=== PATIENT | male | born 1965 | race Caucasian/White ===

== ENCOUNTER → 2017-05-11 15:56 | Outpatient (CLI) | payer MEDICARE, SELFPAY ==
[2017-05-11 16:18] LABS: Basophils # 0.1 K/mm3 (0-0.2); Basophils % 0.8 % (0.1-2.0); Eosinophils # 1.7 K/mm3 (0.0-0.4); Eosinophils % 14.8 % (0.1-12.0); Hematocrit 44.2 % (42.0-52.0); Hemoglobin 13.5 g/dL (14.1-18.0); Lymphocytes # 2.3 K/mm3 (0.7-4.5); Lymphocytes % 19.9 K/mm3 (10-50); Mean Corpuscular HGB Conc 30.5 g/dL (31.8-35.4); Mean Corpuscular Hemoglobin 27.1 pg (27.0-31.2); Mean Corpuscular Volume 88.7 fl (80-94); Mean Platelet Volume 7.5 fl (7.4-10.4); Monocytes # 0.5 K/mm3 (0.1-1.0); Monocytes % 4.3 % (1.7-9.3); Neutrophils # 6.9 K/mm3 (1.8-7.8); Neutrophils % 60.3 % (37.0-80.0); Platelet Count 357 K/mm3 (142-424); Red Blood Count 4.98 M/mm3 (4.60-6.20); Red Cell Distribution Width 14.6 % (11.5-17.5); White Blood Count 11.5 K/mm3 (4.8-10.8)
[2017-05-11 16:44] LABS: Prothrombin Time 98.8 seconds (9.4-11.8)
[2017-05-11 16:45] LABS: INR 8.95 (0.9-1.1)
[2017-05-11 18:52] LABS: Anion Gap 14.3 mEq/L (5-15); Blood Urea Nitrogen 14 mg/dL (7-18); Carbon Dioxide 27 mmol/L (21.0-32.0); Chloride 107 mmol/L (98-107); Creatinine,Serum 0.58 mg/dL (0.70-1.30); Estimated Glomerular Filt Rate 147 ml/min (>60); GFR (African American) 177 ML/MIN (>60); Glucose 64 mg/dL (74-106); Potassium 4.3 mmoL/L (3.5-5.1); Sodium 144 mmol/L (136-145)
== END ==
PROVIDERS: PCP Nurse Practitioner Family; Visit Provider Nurse Practitioner Family
DX: I48.2 Chronic atrial fibrillation (principal); I50.42 Chronic combined systolic (congestive) and diastolic (congestive) heart failure
CPT/HCPCS: 36415; 80048; 85025; 85610

== ENCOUNTER 2017-05-15 15:16 | Outpatient (CLI) | payer MEDICARE, SELFPAY ==
[2017-05-15 16:26] LABS: PHA INR Fingerstick 1.2 (0.9-1.1)
== END 2017-05-15 16:30 | disposition home or self-care (01) ==
LOC: ACC 15:17
PROVIDERS: PCP Internal Medicine Adolescent Medicine; Visit Provider Internal Medicine Adolescent Medicine
DX: Z79.01 Long term (current) use of anticoagulants (principal); Z51.81 Encounter for therapeutic drug level monitoring; I48.91 Unspecified atrial fibrillation
CPT/HCPCS: 85610

== ENCOUNTER 2017-05-25 14:40 | Outpatient (CLI) | payer MEDICARE, SELFPAY ==
[2017-05-25 15:57] LABS: PHA INR Fingerstick 3.4 (0.9-1.1)
== END 2017-05-25 16:00 | disposition home or self-care (01) ==
LOC: ACC 14:42
PROVIDERS: PCP Internal Medicine Adolescent Medicine; Visit Provider Internal Medicine Adolescent Medicine
DX: Z79.01 Long term (current) use of anticoagulants (principal); Z51.81 Encounter for therapeutic drug level monitoring; I48.91 Unspecified atrial fibrillation
CPT/HCPCS: 85610; 99211; G0463

== ENCOUNTER → 2017-06-06 10:17 | Outpatient (CLI) | payer MEDICARE, SELFPAY ==
[2017-06-06 12:00] LABS: Basophils % 0.3 % (0.1-2.0); Eosinophils # 0.3 K/mm3 (0.0-0.4); Eosinophils % 2.1 % (0.1-12.0); Hematocrit 47.7 % (42.0-52.0); Hemoglobin 14.3 g/dL (14.1-18.0); Lymphocytes # 1.9 K/mm3 (0.7-4.5); Mean Corpuscular HGB Conc 30.1 g/dL (31.8-35.4); Mean Corpuscular Hemoglobin 28.1 pg (27.0-31.2); Mean Corpuscular Volume 93.4 fl (80-94); Mean Platelet Volume 7.2 fl (7.4-10.4); Monocytes # 0.5 K/mm3 (0.1-1.0); Neutrophils # 9.6 K/mm3 (1.8-7.8); Neutrophils % 78.5 % (37.0-80.0); Platelet Count 369 K/mm3 (142-424); Red Blood Count 5.11 M/mm3 (4.60-6.20); Red Cell Distribution Width 15.9 % (11.5-17.5); White Blood Count 12.3 K/mm3 (4.8-10.8)
[2017-06-06 13:25] LABS: Alanine Aminotransferase 42 U/L (12-78); Albumin Level 3.8 gm/dL (3.4-5.0); Albumin/Globulin Ratio 0.9 (1.1-1.8); Alkaline Phosphatase 132 U/L (46-116); Anion Gap 15.2 mEq/L (5-15); Aspartate Amino Transferase 19 U/L (15-37); Bilirubin,Total 0.2 mg/dL (0.2-1.0); Blood Urea Nitrogen 16 mg/dL (7-18); Carbon Dioxide 23 mmol/L (21.0-32.0); Chloride 106 mmol/L (98-107); Chol/HDL Ratio 4.5 (1-3.5); Cholesterol 185 mg/dL (140-200); Creatinine,Serum 0.88 mg/dL (0.70-1.30); Estimated Glomerular Filt Rate 91 ml/min (>60); GFR (African American) 110 ML/MIN (>60); Globulin 4.2 gm/dl (1.3-3.2); Glucose 79 mg/dL (74-106); HDL Cholesterol 41 mg/dL (27-67); LDL Cholesterol 109 mg/dL (0-130); Potassium 4.2 mmoL/L (3.5-5.1); Sodium 140 mmol/L (136-145); Triglycerides 173 mg/dL (30-200); VLDL Cholesterol 35 mg/dL (0-40)
[2017-06-06 16:15] LABS: INR 1.67 (0.9-1.1); Prothrombin Time 18.1 seconds (9.4-11.8)
== END ==
PROVIDERS: PCP Internal Medicine Adolescent Medicine; Visit Provider Internal Medicine Adolescent Medicine
DX: Z51.81 Encounter for therapeutic drug level monitoring (principal); Z79.01 Long term (current) use of anticoagulants; I48.91 Unspecified atrial fibrillation
CPT/HCPCS: 36415; 80053; 80061; 85025; 85610

== ENCOUNTER → 2017-06-20 16:16 | Outpatient (CLI) | payer MEDICARE, SELFPAY ==
[2017-06-21 15:13] LABS: PHA INR Fingerstick 2.4 (0.9-1.1)
== END | disposition home or self-care (01) ==
PROVIDERS: Family Provider Internal Medicine Adolescent Medicine; PCP Internal Medicine Adolescent Medicine; Visit Provider Internal Medicine Adolescent Medicine
DX: Z79.01 Long term (current) use of anticoagulants (principal); Z51.81 Encounter for therapeutic drug level monitoring; I48.91 Unspecified atrial fibrillation
CPT/HCPCS: 85610; 99211; G0463

== ENCOUNTER → 2017-06-29 16:07 | Outpatient (CLI) | payer MEDICARE, SELFPAY ==
[2017-06-29 16:21] LABS: PHA INR Fingerstick 2.8 (0.9-1.1)
== END | disposition home or self-care (01) ==
PROVIDERS: PCP Nurse Practitioner Family; Visit Provider Nurse Practitioner Family
DX: Z79.01 Long term (current) use of anticoagulants (principal); Z51.81 Encounter for therapeutic drug level monitoring; I48.91 Unspecified atrial fibrillation
CPT/HCPCS: 85610; 99211; G0463

== ENCOUNTER → 2019-07-25 08:13 | Outpatient (CLI) | payer MEDICARE, SELFPAY ==
--- NOTE | 2019-07-25 08:26 | US_ITS ---
PROCEDURE: US PARACENTESIS CLINICAL INDICATION: ALCOHOLIC CIRRHOSIS OF LIVER WITH ASCITES COMPARISON: No exams were available for comparison TECHNIQUE: Informed consent was obtain prior to procedure. After appropriate Time out, under aseptic conditions and local anesthesia with 1% buffered lidocaine using sonographic guidance a 6 Prydeinig Ditp-O-Gdwzgdsr catheter was inserted into the largest pocket of fluid localized in the right lower quadrant. Approximately 3200 mL of Serosanguineous fluid was drained. The patient tolerated the procedure well and left the radiology suite in stable condition. FINDINGS: Mild diffuse ascites IMPRESSION: Successful sonographic guided paracentesis without complication. Dictated by: Valentin Issa MD 07/25/2019 14:10 Electronically signed by Valentin Issa MD in [place] 07/25/2019 14:10
== END ==
PROVIDERS: PCP Nurse Practitioner Family; Visit Provider Nurse Practitioner Family
DX: K70.31 Alcoholic cirrhosis of liver with ascites (principal)
CPT/HCPCS: 49083

== ENCOUNTER → 2019-08-05 09:08 | Outpatient (CLI) | payer MEDICARE, SELFPAY ==
[2019-08-06 08:53] LABS: Covid-19 Nasal PCR Sendout Lex NOT DETECTED
--- NOTE | 2019-08-06 10:24 | PC.NURSE ---
[id number]-notified pt and of negative COVID 19 results.
== END ==
PROVIDERS: Visit Provider Radiology Diagnostic Radiology
DX: Z03.818 Encounter for observation for suspected exposure to other biological agents ruled out (principal)
CPT/HCPCS: U0003

== ENCOUNTER → 2019-08-27 10:41 | Outpatient (CLI) | payer MEDICARE, SELFPAY ==
--- NOTE | 2019-08-27 11:12 | US_ITS ---
PROCEDURE: US PARACENTESIS CLINICAL INDICATION: R18.8 Liver cancer, ascites COMPARISON: US PARACENTESIS from 07/25/2019 TECHNIQUE: Informed consent was obtain prior to procedure. After appropriate Time out, under aseptic conditions and local anesthesia with 1% buffered lidocaine using sonographic guidance a 6 [place] Mouh-N-Bjpbhdqa catheter was inserted into the largest pocket of fluid localized in the right lower quadrant. Approximately Fluid 4300 mL serosanguineous fluid was drained. The patient tolerated the procedure well and left the radiology suite in stable condition. FINDINGS: Diffuse ascites IMPRESSION: Successful sonographic guided paracentesis without complication. Dictated by: Valentin Issa MD 08/27/2019 15:30 Electronically signed by Valentin Issa MD in [facility] 08/27/2019 15:30
[2019-08-27 11:21] LABS: Ammonia 51 umol/L (9-30)
[2019-08-27 11:25] LABS: Basophils # 0.1 K/mm3 (0-0.2); Basophils % 1.1 % (0.1-2.0); Eosinophils # 0.2 K/mm3 (0.0-0.4); Eosinophils % 2.3 % (0.1-12.0); Hematocrit 33.3 % (42.0-52.0); Hemoglobin 9.7 g/dL (14.1-18.0); Lymphocytes # 1.9 K/mm3 (0.7-4.5); Lymphocytes % 20.4 % (10-50); Mean Corpuscular HGB Conc 29.1 g/dL (31.8-35.4); Mean Corpuscular Hemoglobin 28.8 pg (27.0-31.2); Mean Platelet Volume 9.5 fl (7.4-10.4); Monocytes % 10.2 % (1.7-9.3); Neutrophils # 6.1 K/mm3 (1.8-7.8); Neutrophils % 66.1 % (37.0-80.0); Platelet Count 194 K/mm3 (142-424); Red Blood Count 3.36 M/mm3 (4.60-6.20); Red Cell Distribution Width 18.4 % (11.5-17.5); White Blood Count 9.3 K/mm3 (4.8-10.8)
[2019-08-27 12:09] LABS: Alanine Aminotransferase 24 U/L (12-78); Albumin/Globulin Ratio 0.7 (1.1-1.8); Alkaline Phosphatase 117 U/L (38-126); Anion Gap 12.4 mEq/L (5-15); Aspartate Amino Transferase 47 U/L (17-59); Bilirubin,Total 1.4 mg/dl (0.2-1.3); Blood Urea Nitrogen 12 mg/dl (9-20); Calcium 9.6 mg/dl (8.4-10.2); Carbon Dioxide 19 mmol/L (22.0-30.0); Chloride 112 mmol/L (98-107); Estimated Glomerular Filt Rate 77 ml/min (>60); GFR (African American) 94 ML/MIN (>60); Globulin 4.4 g/dL (1.3-3.2); Glucose 107 mg/dl (74-100); Potassium 4.4 mmoL/L (3.5-5.1); Sodium 139 mmol/L (136-145); Total Protein,Serum 7.4 g/dl (6.3-8.2)
== END ==
PROVIDERS: PCP Nurse Practitioner Family; Visit Provider Internal Medicine Adolescent Medicine
DX: K70.31 Alcoholic cirrhosis of liver with ascites (principal); K72.90 Hepatic failure, unspecified without coma; I48.20 Chronic atrial fibrillation, unspecified
CPT/HCPCS: 49083; 36415; 80053; 82140; 85025